=== PATIENT | male | born 1945 | race Caucasian/White ===

== ENCOUNTER → 2017-08-24 | Outpatient (CLI) | payer OTHER, MEDICARE | LOC: EDSEX 08-10 21:30 → SBRMNEURO 21:00 | PROVIDERS: ATTEND Psychiatry & Neurology Sleep Medicine | DX: G47.33 Obstructive sleep apnea (adult) (pediatric) (principal); G47.31 Primary central sleep apnea; G47.52 REM sleep behavior disorder ==

== ENCOUNTER → 2017-10-20 | Outpatient (CLI) | payer OTHER, MEDICARE | LOC: SBRMNEURO 20:00 | PROVIDERS: ATTEND Psychiatry & Neurology Sleep Medicine | DX: G47.33 Obstructive sleep apnea (adult) (pediatric) (principal); G47.31 Primary central sleep apnea; G47.52 REM sleep behavior disorder ==